=== PATIENT | male | born 1995 | race Caucasian/White ===

== ENCOUNTER 2019-12-29 15:58 | Emergency (ER) | payer SELFPAY ==
[~2019-12-29] VITALS: Ht 172.7 cm; Wt 83.5 kg
[2019-12-29 16:07] VITALS: Ht 172.7 cm; Wt 83.5 kg
[2019-12-29 18:23] VITALS: BP 136/85
== END 2019-12-29 18:00 | disposition home or self-care (01) ==
LOC: ED 15:58
DX: T78.40XA Allergy, unspecified, initial encounter (principal); Z91.018 Allergy to other foods; X58.XXXA Exposure to other specified factors, initial encounter
CPT/HCPCS: J0171; J1200; J2930